=== PATIENT | female | born 1985 ===

== ENCOUNTER 2017-03-30 15:47 | Inpatient (IN) ==
[2017-03-30 16:51] LABS: Basophils % 0.2 % (0.0-0.8); Hematocrit 40.8 VOL% (35.7-47.0); Hemoglobin 13.5 GM/DL (12.0-16.0); Immature Granulocytes % 0.4 %; Immature Granulocytes Absolute 0.04 #; Lymphocytes # 2.3 10*3/uL (1.4-4.0); Lymphocytes % 24.3 % (21.3-54.2); Mean Corpuscular HGB Conc 33.1 GM/DL (32-36); Mean Corpuscular Hemoglobin 30 PG (27-34); Mean Corpuscular Volume 91.1 FL (87-102); Mean Platelet Volume 13.7 FL (9.6-12.0); Monocytes # 0.8 10*3/uL (0.11-0.8); Monocytes % 8.9 % (1.7-12.7); Neutrophils # 6.2 10*3/uL (1.4-7.4); Neutrophils % 66.2 % (38.7-73.9); Platelet Count 196 T/CUMM (130-400); Red Blood Count 4.48 MC/CUMM (3.8-5.5); Red Cell Distribution Width 13.1 % (9.3-17.3); White Blood Count 9.4 T/CUMM (4-12)
[2017-03-30 16:57] LABS: Albumin 3.2 G/DL (3.4-5.0); Bilirubin,Total 0.5 MG/DL (0.2-1.0); Calcium 10.2 MG/DL (8.5-10.1); Osmolality,Calculated 335.3 MOS/KG (273-304); Potassium 4.1 MMOL/L (3.5-5.1); Total Protein 7.9 G/DL (6.4-8.3)
[2017-03-30] MEDS ORDERED: DOCUSATE SODIUM 100 MG CAPSULE PO PRN (17:07)
[2017-03-30] MEDS ORDERED: SODIUM CHLORIDE 0.9% 1,000 ML IV ONE (17:07)
[2017-03-30] MEDS ORDERED: DEXTROSE 50% 25 GM/50 ML VIAL IV PRN ×2 (17:07)
[2017-03-30] MEDS ORDERED: NICOTINE 21 MG/24 HR PATCH TRANSDERM PRN (17:07)
[2017-03-30] MEDS ORDERED: INSULIN REGULAR 100 UNIT/ML IV ONE (17:07)
[2017-03-30] MEDS ORDERED: traZODone 50 MG TABLET PO PRN (17:07)
[2017-03-30] MEDS ORDERED: guaiFENesin/DM ER 600-30 MG TABLET PO PRN (17:07)
[2017-03-30] MEDS ORDERED: POTASSIUM CHLORIDE RIDER 10 MEQ in PREMIX 1 EACH IV PRN (17:07)
[2017-03-30] MEDS ORDERED: PROMETHAZINE 25 MG/1 ML VIAL IM PRN (17:07)
[2017-03-30] MEDS ORDERED: MAGNESIUM SULF RIDER 4 GM in PREMIX 1 EACH IV PRN (17:07)
[2017-03-30] MEDS ORDERED: ONDANSETRON 4 MG/2 ML VIAL IV PRN (17:07)
[2017-03-30] MEDS ORDERED: SODIUM PHOSPHATE INJ 23.8 MMOL in SODIUM CHLORIDE 0.9% 250 ML IV PRN (17:07)
[2017-03-30] MEDS ORDERED: MAGNESIUM SULF RIDER 2 GM in PREMIX 1 EACH IV PRN (17:07)
[2017-03-30] MEDS ORDERED: diphenhydrAMINE CAP 25 MG CAPSULE PO PRN (17:07)
[2017-03-30] MEDS ORDERED: ACETAMINOPHEN 325 MG TABLET PO PRN (17:07)
[2017-03-30] MEDS ORDERED: SODIUM BICARB INJ 100 MEQ in STERILE WATER INJ 400 ML IV PRN (17:07)
[2017-03-30] MEDS ORDERED: INSULIN REGULAR DRIP 100 ML IV SCH (17:30)
[2017-03-30 17:44] LABS: ABG Base Excess -0.4 MMOL/L (-2.5-2.5); ABG HCO3 23.5 MMOL/L (20-26); ABG Oxygen Saturation 96.9 % (95-100); ABG PCO2 36.1 MM HG (35-48); ABG PH 7.431 (7.35-7.45); ABG PO2 93.8 MM HG (80-95); ABG TCO2 24.6 MMOL/L (23-27); Pt O2 Delivery Device Room Air
[2017-03-30] MEDS ORDERED: INSULIN REGULAR 100 UNIT/ML ONE (17:47)
[2017-03-30 17:52] LABS: Magnesium 2.7 MG/DL (1.8-2.4)
[2017-03-30 18:01] LABS: Risk Ratio 10.21; Thyroid Stimulating Hormone 1.62 uIU/ml (0.358-3.74)
[2017-03-30] MEDS ORDERED: SODIUM CHLORIDE 0.9% 1,000 ML IV STA (18:41)
[2017-03-30] MEDS: SODIUM CHLORIDE 0.9% 1,000 ML IV SCH ×2 (19:35→19:36)
[2017-03-30] MEDS ORDERED: SODIUM CHLORIDE 0.9% 1,000 ML IV SCH (22:07)
[2017-03-30 22:09] LABS: Calcium 9.8 MG/DL (8.5-10.1); Osmolality,Calculated 325.3 MOS/KG (273-304); Potassium 4.6 MMOL/L (3.5-5.1)
[2017-03-30] MEDS: ENOXAPARIN 40 MG/0.4 ML SYRINGE SUBCUT SCH (23:32)
[2017-03-30] MEDS: SODIUM CHLORIDE 0.45% 1,000 ML IV SCH (23:34)
[2017-03-31 02:17] LABS: Basophils % 0.2 % (0.0-0.8); Eosinophils # 0.1 10*3/uL (0.0-0.87); Eosinophils % 1.4 % (0.00-10.9); Hematocrit 37.1 VOL% (35.7-47.0); Hemoglobin 12.4 GM/DL (12.0-16.0); Immature Granulocytes % 0.5 %; Immature Granulocytes Absolute 0.04 #; Lymphocytes # 2.5 10*3/uL (1.4-4.0); Lymphocytes % 30.5 % (21.3-54.2); Mean Corpuscular HGB Conc 33.4 GM/DL (32-36); Mean Corpuscular Hemoglobin 30 PG (27-34); Mean Platelet Volume 13.1 FL (9.6-12.0); Monocytes # 0.7 10*3/uL (0.11-0.8); Monocytes % 8.3 % (1.7-12.7); Neutrophils # 4.9 10*3/uL (1.4-7.4); Neutrophils % 59.1 % (38.7-73.9); Platelet Count 152 T/CUMM (130-400); Red Blood Count 4.12 MC/CUMM (3.8-5.5); Red Cell Distribution Width 13.2 % (9.3-17.3); White Blood Count 8.3 T/CUMM (4-12)
[2017-03-31 02:38] LABS: Calcium 9.2 MG/DL (8.5-10.1); Osmolality,Calculated 325.9 MOS/KG (273-304); Potassium 4.1 MMOL/L (3.5-5.1)
[2017-03-31 04:36] LABS: Magnesium 2.3 MG/DL (1.8-2.4)
[2017-03-31 06:02] LABS: Calcium 9.6 MG/DL (8.5-10.1); Osmolality,Calculated 326.6 MOS/KG (273-304); Potassium 3.8 MMOL/L (3.5-5.1)
[2017-03-31] MEDS: SODIUM CHLORIDE 0.45% 1,000 ML IV SCH (06:08)
[2017-03-31] MEDS ORDERED: POTASSIUM CHLORIDE 20 MEQ TABLET PO PRN (06:28)
[2017-03-31] MEDS ORDERED: SODIUM BICARB INJ 50 MEQ in STERILE WATER INJ 1,000 ML IV SCH (06:30)
[2017-03-31 07:17] VITALS: BP 142/93
[2017-03-31] MEDS: INSULIN LISPRO 100 UNIT/ML SUBCUT SCH ×7 (08:22→21:18)
[2017-03-31] MEDS ORDERED: INSULIN GLARGINE 100 UNIT/ML SUBCUT SCH ×2 (09:00→17:52)
[2017-03-31] MEDS: SODIUM CHLORIDE 23.4% CONC INJ 38.5 MEQ in STERILE WATER INJ 1,000 ML IV SCH ×2 (09:22→19:45)
[2017-03-31] MEDS: PANTOPRAZOLE 40 MG TABLET PO SCH (09:22)
[2017-03-31 09:26] LABS: Calcium 9.6 MG/DL (8.5-10.1); Osmolality,Calculated 317.2 MOS/KG (273-304); Potassium 4.4 MMOL/L (3.5-5.1)
[2017-03-31] MEDS ORDERED: SODIUM CHLORIDE 0.45% 1,000 ML IV SCH (10:07)
[2017-03-31 15:21] LABS: Calcium 8.9 MG/DL (8.5-10.1); Osmolality,Calculated 321.3 MOS/KG (273-304); Potassium 3.6 MMOL/L (3.5-5.1)
[2017-03-31] MEDS: LISINOPRIL 2.5 MG TABLET PO SCH (15:48)
[2017-03-31 19:59] LABS: Calcium 8.6 MG/DL (8.5-10.1); Osmolality,Calculated 306.3 MOS/KG (273-304); Potassium 3.2 MMOL/L (3.5-5.1)
[2017-03-31] MEDS: ENOXAPARIN 40 MG/0.4 ML SYRINGE SUBCUT SCH (21:19)
[2017-04-01] MEDS: SODIUM CHLORIDE 23.4% CONC INJ 38.5 MEQ in STERILE WATER INJ 1,000 ML IV SCH ×2 (04:03→12:14)
[2017-04-01 08:09] LABS: Calcium 8.7 MG/DL (8.5-10.1); Osmolality,Calculated 296.8 MOS/KG (273-304); Potassium 4.1 MMOL/L (3.5-5.1)
[2017-04-01] MEDS ORDERED: PHENOL 1.4% THROAT SPRAY 177 ML BOTTLE PO PRN (08:43)
[2017-04-01] MEDS ORDERED: INSULIN GLARGINE 100 UNIT/ML SUBCUT SCH ×3 (08:44→21:00)
[2017-04-01] MEDS: LISINOPRIL 2.5 MG TABLET PO SCH (09:11)
[2017-04-01] MEDS: PANTOPRAZOLE 40 MG TABLET PO SCH (09:11)
[2017-04-01] MEDS: INSULIN LISPRO 100 UNIT/ML SUBCUT SCH ×8 (09:13→21:03)
[2017-04-01] MEDS ORDERED: INSULIN GLARGINE 100 UNIT/ML SUBCUT ONE (18:00)
[2017-04-01] MEDS ORDERED: INSULIN LISPRO 100 UNIT/ML SUBCUT SCH (18:09)
[2017-04-01] MEDS: ENOXAPARIN 40 MG/0.4 ML SYRINGE SUBCUT SCH (21:04)
[2017-04-02] MEDS: SODIUM CHLORIDE 23.4% CONC INJ 38.5 MEQ in STERILE WATER INJ 1,000 ML IV SCH (07:42)
[2017-04-02 07:43] LABS: Calcium 8.8 MG/DL (8.5-10.1); Osmolality,Calculated 288.3 MOS/KG (273-304); Potassium 4.3 MMOL/L (3.5-5.1)
[2017-04-02] MEDS: PANTOPRAZOLE 40 MG TABLET PO SCH (08:54)
[2017-04-02] MEDS: INSULIN LISPRO 100 UNIT/ML SUBCUT SCH (08:54)
[2017-04-02] MEDS: LISINOPRIL 2.5 MG TABLET PO SCH (08:54)
== END 2017-04-02 11:10 | disposition home or self-care (01) | DRG 638 ==
LOC: EDUNIT# → N.ED 15:47 → N.EDINP 16:39 → SUATTDRO 16:39 → N.EDINP 18:47 → N.ICU 19:02 → N.4E 03-31 12:03
PROVIDERS: ADMIT Hospitalist; ATTEND Internal Medicine Cardiovascular Disease